=== PATIENT | male | born 1985 | race Caucasian/White ===

== ENCOUNTER 2016-08-23 12:30 | Emergency (ER) | payer OTHER ==
[~2016-08-23] VITALS: Ht 188 cm; Wt 120.3 kg
[2016-08-23 12:34] VITALS: TEMP 36.5; Ht 188 cm; Wt 120.3 kg
--- NOTE | 2016-08-23 13:13 | DIAGNOSTIC IMAGING REPORT ---
RIGHT FINGER(S) MIN 2 VIEWS ROUTINE CLINICAL HISTORY: RIGHT THIRD FINGER Right trauma. Pain. COMPARISON: None. DISCUSSION: Small punctate old avulsion base middle phalanx. No acute bony abnormality. No evidence for dislocation. There is no evidence for soft tissue swelling. IMPRESSION: No acute process. Electronically signed by: Uche Hernandez M.D. 08/23/2016 1:11 PM Dictated Date/Time: 08/23/2016 1:10 PM
[2016-08-23] MEDS ORDERED: OXYC1TAB3 PO (13:24)
[2016-08-23 13:31] VITALS: BP 125/78; PULSE 76; O2SAT 96
--- NOTE | 2016-08-23 15:20 | EMERGENCY ROOM VISIT NOTE ---
History First contact with patient: 12:37 Chief Complaint: FINGER PAIN Stated Complaint: RIGHT MIDDLE FINGER SMASHED AT WORK History of Present Illness The patient is a 31 year old male who presents to the Emergency Room with complaints of a right third finger crush injury at work approximately an hour prior to arrival. The patient denies any open wounds, but reports a throbbing sensation of the tip of his finger. He denies any pain extending into the hand or wrist. The patient is [id number], and rates his discomfort a 4 out of 10 on my exam. Review of Systems 10 system review was performed and was negative except for pertinent positives and negatives as indicated in history of present illness Past Medical/Surgical History Medical Problems: (1) Deviated Nasal Septum Surgical Problems: (1) No history of previous surgery Family History Unremarkable Social History Smoking Status: Never Smoker Alcohol Use: occasionally Marital Status: Housing Status: lives with family Occupation Status: employed Current/Historical Medications Scheduled PRN Oxycodone Ir (Roxicodone Ir), 1-2 TAB PO Q4H PRN for Pain Allergies Coded Allergies: No Known Allergies (Unverified , 08/23/16) Physical Exam Vital Signs Date Time Temp Pulse Resp B/P Pulse Ox O2 Delivery O2 Flow Rate FiO2 08/23/16 13:31 76 16 125/78 96 08/23/16 12:34 36.5 67 18 111/72 98 Room Air Physical Exam CONSTITUTIONAL: Healthy and well nourished. Alert and oriented X 3 with positive affect. Patient does not appear in any acute distress. HEENT: Normocephalic, atraumatic. Pupils equal, round and reactive. NECK: Full active range of motion without discomfort. MUSCULOSKELETAL: Examination of the right third finger does not show any lacerations. Nail plate is intact. There is ecchymosis of the tip of the finger. He has no focal tenderness to palpation of the DIP or PIP joint. Collateral ligaments are intact. No tenderness to palpation through the hand or wrist region. Capillary refill of the third finger is less than 2 seconds. INTEGUMENTARY: No rash or other significant dermatologic conditions noted. NEUROLOGIC: No focal neurologic deficits noted. Right third fingertip is sensory intact. Medical Decision & Procedures ER Provider Diagnostic Interpretation: My interpretation of right finger x-rays does not show any acute fractures or dislocations. An old avulsion at the base of the volar middle phalanx is noted. Radiologist report is as follows: RIGHT FINGER(S) MIN 2 VIEWS ROUTINE CLINICAL HISTORY: RIGHT THIRD FINGER Right trauma. Pain. COMPARISON: None. DISCUSSION: Small punctate old avulsion base middle phalanx. No acute bony abnormality. No evidence for dislocation. There is no evidence for soft tissue swelling. IMPRESSION: No acute process. ED Course Patient history and physical exam were performed. Nurse's notes were reviewed. The patient refused any analgesics while in the emergency department. X-rays of the right third finger are normal. The patient was encouraged to intermittently apply ice and elevate the hand for swelling and pain. Ibuprofen and Tylenol in alternating fashion as needed for baseline pain relief. Was provided a prescription for OxyIR as needed for worse pain. No drinking alcohol or driving while taking this medication. The patient was also provided with some Coban tape to pad the finger. He was instructed to follow-up with his Worker's Compensation physician as needed for further management. The patient was happy with plan of care, and voiced understanding of all discharge instructions, rating his pain a 3 out of 10 at the time of discharge. Medical Decision Impression Primary Impression: Contusion of right middle finger Additional Impression: Work related injury Departure Information Prescriptions Oxycodone Ir (Roxicodone Ir) 5 Mg Tab 1-2 TAB PO Q4H Y for Pain, #15 TAB For Initial Treatment Prov: Nathaniel Lambert PA 08/23/16 Referrals No Doctor, Assigned (PCP) Patient Instructions My [facility] Problem Qualifiers Primary Impression: Contusion of right middle finger Encounter type: initial encounter Damage to nail status: without damage Qualified Codes: S60.031A - Contusion of right middle finger without damage to nail, initial encounter
== END 2016-08-23 13:31 | disposition home or self-care (01) ==
LOC: C.EDB 12:32 → C.EDA 13:31
DX: S60.031A Contusion of right middle finger without damage to nail, initial encounter (principal); W23.0XXA Caught, crushed, jammed, or pinched between moving objects, initial encounter; Y99.0 Civilian activity done for income or pay; Y92.89 Other specified places as the place of occurrence of the external cause